=== PATIENT | female | born 2000 | race Caucasian/White ===

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

== ENCOUNTER 2020-04-30 08:41 | Emergency (ER) | payer MEDICAID ==
[~2020-04-30] VITALS: Ht 165.1 cm; Wt 65.3 kg
[2020-04-30 08:45] VITALS: BP_SYST 128
--- NOTE | 2020-04-30 08:51 | NUR ---
Patient triaged and placed in waiting room. VSS and patient appears in no acute distress at this time. Awaiting available bed, and MD notified of need for MSE.
--- NOTE | 2020-04-30 08:53 | NUR ---
Patient arrived in the ED c/o abdominal pain and nausea that started 2 days ago. Denied any chest pain or shortness of breath. Denied any fevers, chills, or vomiting. Patient is alert and oriented x4, respirations even and unlabored, speaking in full sentences, and ambulating with a steady gait. VSS, pain level 7/10. Informed of the approximate wait time. Instructed to notify ED staff for any changes in condition or worsening of symptoms while waiting to be seen by an ED provider. Patient verbalized understanding.
--- NOTE | 2020-04-30 09:00 | NUR ---
# 22 gauge angiocath placed to right hand using asceptic technique per facility protocol. Opsite placed over site. Blood return noted. Flushed with 10 mL of sterile normal saline. No evidence of infiltration noted. Patient tolerated well.
--- NOTE | 2020-04-30 09:20 | NUR ---
Administered Morphine Sulfate and Zofran IVP as ordered by Dr. Beard. Patient tolerated the medications well. See eMAR for details.
[2020-04-30 09:24] LABS: BASOPHILS % (AUTO) 0.1 % (0.0-2.0); HEMOGLOBIN 10.7 g/dL (12.0-16.0); LYMPHOCYTES # (AUTO) 1.1 K/uL (1.0-5.5); LYMPHOCYTES % (AUTO) 5.4 % (20.5-51.5); MEAN CORPUSCULAR HEMOGLOBIN 20 pg (27-31); MEAN CORPUSCULAR HGB CONC 31 % (32-36); MEAN CORPUSCULAR VOLUME 67 fL (79.0-98.0); MONOCYTES # (AUTO) 1.3 K/uL (0.0-1.0); NEUTROPHILS # (AUTO) 18.7 K/uL (1.8-7.7); NEUTROPHILS % (AUTO) 88.5 % (40.0-70.0); PLATELET COUNT (AUTO) 347 K/uL (130-430); RED BLOOD CELL COUNT(AUTO) 5.25 MIL/uL (4.2-6.2); RED CELL DISTRIBUTION WIDTH 17.2 % (9.0-15.0); WHITE BLOOD COUNT (AUTO) 21.1 K/uL (4.5-11.0)
[2020-04-30 09:38] LABS: CALCIUM 9.2 mg/dL (8.4-11.0); CREATININE 0.93 mg/dL (0.55-1.30); POTASSIUM 3.6 mmol/L (3.5-5.1)
[2020-04-30 09:49] LABS: ALBUMIN 4.1 g/dL (3.4-4.8); TOTAL BILIRUBIN 0.7 mg/dL (0.0-1.0)
[2020-04-30] MEDS ORDERED: NACL 0.9% 1,000 ML IV ONE (10:10)
[2020-04-30] MEDS ORDERED: ONDANSETRON HCL 4 MG/2 ML VIAL IVP ONE (10:15)
[2020-04-30] MEDS ORDERED: MORPHINE 4 MG/ML INJ. SYRINGE IVP ONE (10:15)
[2020-04-30 10:34] LABS: BILIRUBIN,URINE 1+ (NEGATIVE); BLOOD, URINE 3+ (NEGATIVE); CLARITY/URINE CLOUDY (CLEAR); COLOR,URINE YELLOW (YELLOW); GLUCOSE,URINE NEGATIVE (NEGATIVE); KETONES,URINE TRACE (NEGATIVE); LEUKOCYTE ESTERASE ,URINE 1+ (NEGATIVE); NITRITE, URINE NEGATIVE (NEGATIVE); PH,URINE 5.5 (5.0-8.0); PROTEIN URINE 1+ (NEGATIVE); UROBILINOGEN,URINE 0.2 (0.2-1.0)
[2020-04-30 10:41] LABS: BACTERIA,URINE FEW /HPF (None Seen); WBC,URINE 20-50 /HPF (0-3)
--- NOTE | 2020-04-30 11:05 | NUR ---
Patient is taken to Ultrasound, in stable condition.
--- NOTE | 2020-04-30 13:30 | NUR ---
ER discussed with the patient the results and treatment provided. Patient given written and verbal discharge instructions and verbalized understanding. Opportunity for questions provided and answered. Patient in stable condition, last set of vital signs within normal limits, pain scale 0/10, speaking in full sentences and ambulated with a steady gait upon discharge. ID arm band removed. No Rx given. Patient educated on pain management and to follow up with PMD. Medication side effect fact sheet provided.
[2020-04-30 13:33] VITALS: BP_SYST 128
== END 2020-04-30 13:33 | disposition home or self-care (01) ==
LOC: SED 08:41
DX: D36.9 Benign neoplasm, unspecified site (principal); N39.0 Urinary tract infection, site not specified; R10.30 Lower abdominal pain, unspecified; R11.2 Nausea with vomiting, unspecified
CPT/HCPCS: 36415; 74176; 76856; 80053; 81000; 84702; 85025; 87086; 96361; 96374; 96375; 99285; J2270; J2405; J7030